=== PATIENT | male | born 1990 | race Caucasian/White ===

== ENCOUNTER 2017-10-13 20:00 | Emergency (ER) | payer BC ==
[2017-10-13] MEDS ORDERED: Fluorescein Opthalmic Strip ONE (20:21)
[2017-10-13] MEDS ORDERED: Proparacaine 0.5% Opth 15 ML BOT ONE (20:21)
== END 2017-10-13 20:45 | disposition home or self-care (01) ==
LOC: SCSER 20:00
DX: H10.9 Unspecified conjunctivitis (principal)
CPT/HCPCS: 99283